=== PATIENT | female | born 1975 | race African-American/Black ===

== ENCOUNTER 2018-10-17 12:31 | Emergency (ER) | payer MEDICAID ==
[~2018-10-17] VITALS: Ht 160 cm; Wt 67.0 kg
[2018-10-17 12:37] VITALS: BP 156/99
== END 2018-10-17 14:01 | disposition home or self-care (01) ==
LOC: ER 12:31
DX: L25.9 Unspecified contact dermatitis, unspecified cause (principal); E11.9 Type 2 diabetes mellitus without complications; I10 Essential (primary) hypertension
CPT/HCPCS: 99283